=== PATIENT | male | born 1970 | race African-American/Black ===

== ENCOUNTER 2017-09-11 10:52 | Day surgery (SDC) | payer OTHER ==
[~2017-09-11 10:52] MED LIST: ACET325C PO; ACYC-202 PO; ALLO100T PO; DIPH-522 PO; FAMO20TA8 PO; SPIR25TA3 PO; ZOLP5TAB8 PO
[2017-09-11] MEDS ORDERED: normal saline 1000ml 1,000 ML IV SCH (11:20)
[2017-09-11] MEDS ORDERED: CLIN150C16 (11:37)
[2017-09-11] MEDS ORDERED: LIDOcaine 1% (10mg/ml) 2ml vial ONE (11:43)
[2017-09-11 11:59] LABS: BASOPHILS % (AUTO) 0.7 % (0-1); EOSINOPHILS # (AUTO) 0.1 X10'3 (0-0.9); EOSINOPHILS % (AUTO) 1.3 % (0-6); HEMOGLOBIN 7.3 g/dl (14.0-17.9); LYMPHOCYTES # (AUTO) 0.3 X10'3 (1.1-4.8); LYMPHOCYTES % (AUTO) 7.2 % (21-51); MEAN CORPUSCULAR HGB CONC 34.1 % (33.0-36.5); MEAN CORPUSCULAR VOLUME 87.9 FL (78-98); MEAN PLATELET VOLUME 8.1 FL (7.4-10.4); MONOCYTES # (AUTO) 0.4 X10'3 (0-0.9); MONOCYTES % (AUTO) 7.4 % (2-12); NEUTROPHILS % (AUTO) 83.4 % (42-75); RED BLOOD COUNT 2.44 X10'6 (4.70-6.10); WHITE BLOOD COUNT 4.8 X10'3 (4.5-11.0)
[2017-09-11 12:00] VITALS: BP 140/100
[2017-09-11 12:13] LABS: HEMATOCRIT 21.5 % (42.0-52.0)
[2017-09-11 12:14] LABS: PLATELET COUNT 28 X10'3 (140-440)
[2017-09-11 12:18] LABS: BASOPHILS % (AUTO) 0 % (0-1); EOSINOPHILS # (AUTO) 0.1 X10'3 (0-0.9); HEMATOCRIT 23.3 % (42.0-52.0); LYMPHOCYTES # (AUTO) 0.5 X10'3 (1.1-4.8); LYMPHOCYTES % (AUTO) 9.9 % (21-51); MEAN CORPUSCULAR HEMOGLOBIN 30.2 PG (27.0-31.0); MEAN CORPUSCULAR HGB CONC 34.4 % (33.0-36.5); MEAN CORPUSCULAR VOLUME 87.8 FL (78-98); MEAN PLATELET VOLUME 8.8 FL (7.4-10.4); MONOCYTES # (AUTO) 0.4 X10'3 (0-0.9); NEUTROPHILS # (AUTO) 3.8 X10'3 (1.8-7.7); NEUTROPHILS % (AUTO) 80.1 % (42-75); RED BLOOD COUNT 2.66 X10'6 (4.70-6.10); RED CELL DISTRIBUTION WIDTH 18.6 % (11.5-14.5); WHITE BLOOD COUNT 4.8 X10'3 (4.5-11.0)
[2017-09-11 12:21] LABS: PLATELET COUNT 21 X10'3 (140-440)
== END 2017-09-11 13:15 | disposition home or self-care (01) ==
LOC: SSTAY O 10:52
PROVIDERS: ATTEND Radiology Diagnostic Radiology
DX: C86.1 Hepatosplenic T-cell lymphoma (principal); D69.6 Thrombocytopenia, unspecified; I10 Essential (primary) hypertension; Z53.8 Procedure and treatment not carried out for other reasons; Z79.2 Long term (current) use of antibiotics; Z79.899 Other long term (current) drug therapy; Z53.09 Procedure and treatment not carried out because of other contraindication
CPT/HCPCS: 36415; 85025; J3490; J7030